=== PATIENT | female | born 1980 | race Caucasian/White ===

== ENCOUNTER 2018-01-18 20:22 | Emergency (ER) | payer OTHER ==
[2018-01-18] MEDS ORDERED: NEOMYCIN/BACITRACIN/POLYMYXINB 1 EACH OINT.PACK TP ONE (21:05)
[2018-01-18] MEDS ORDERED: Lidocaine 2% 20ml Vial IP ONE (21:05)
--- NOTE | 2018-01-18 21:08 | ED Physician Documentation ---
General Adult - HISTORIAN Historian: patient - HPI Stated Complaint: left arm laceration Chief Complaint: Laceration/Recheck/Suture Onset: hours (2) Timing: still present Severity: mild Further Comments: yes (she is a cutter for personal reasons. She is at [facility] for alcoholism and she is doing well) Last known Well Code/Unknown Code: Unknown - ROS CONST: no problems MS/SKIN/LYMPH: none - PAST HX Past History: other (alcoholism ) Allergies/Adverse Reactions: Allergies Allergy/AdvReac Type Severity Reaction Status Date / Time No Known Allergies Allergy Verified 01/18/18 21:35 Home Medications: Ambulatory Orders Medication Instructions Recorded NK [NK] 01/18/18 - SOCIAL HX Smoking History: cigarettes Alcohol Use: heavy Drug Use: none - FAMILY HX Family History: No - VITAL SIGNS Vital Signs: Vital Signs Temp Pulse Resp BP Pulse Ox 98.3 F 87 18 119/62 99 01/18/18 20:22 01/18/18 21:28 01/18/18 21:28 01/18/18 21:28 01/18/18 21:28 - REVIEWED ASSESSMENTS Nursing Assessment Reviewed: Yes Vitals Reviewed: Yes Procedures Wound Location: upper extremity (left forearm ) Wound's Depth, Shape: superficial Wound Explored: clean Anesthesia: 2% Lidocaine Suture Size/Type: 4:0 Number of Sutures: 9 ED Results Lab/Radiology - Orders Orders: ED Orders Category Date Time Status Apply occlusive dressing D Care 01/18/18 21:04 Active Lidocaine 2% 20ml Vial [Xylocaine] Med 01/18/18 21:05 Discontinued 20 mg IP NOW ONE Neomycin/Bacitracin/Polymyxinb [Triple Antibiotic Med 01/18/18 21:05 Discontinued Ointment] 1 each TP NOW ONE General Adult Physical Exam - PHYSICAL EXAM GENERAL APPEARANCE: no distress EENT: eye inspection normal NECK: normal inspection RESPIRATORY: no resp distress, chest non-tender, breath sounds normal CVS: reg rate & rhythm, heart sounds normal, equal pulses, no murmur ABDOMEN: soft, normal bowel sounds SKIN: warm/dry, other (4 in laceration on left forearm ) NEURO: oriented X3, CN's nml as tested, motor nml, sensation nml Discharge Clincal Impression: Laceration Referrals: Primary Doctor,No [Primary Care Provider] - 2 Days Comments: 1. Keep area clean and dry 2. remove sutures in 7-10 days 3. Watch for symptoms of infection : redness, swelling, streaking, bleeding, drainage or other concerning symptoms 4. Return to ER for any concerns Condition: Stable Disposition: 01 HOME, SELF-CARE Decision to Admit: NO Date of Decison to Admit: 01/18/18 Decision Time: 21:08
[2018-01-18 21:26] VITALS: BP 119/62
== END 2018-01-18 21:10 | disposition home or self-care (01) ==
LOC: ED 20:22
DX: S51.812A Laceration without foreign body of left forearm, initial encounter (principal); X78.9XXA Intentional self-harm by unspecified sharp object, initial encounter; Y92.9 Unspecified place or not applicable; Y93.9 Activity, unspecified; Y99.9 Unspecified external cause status
CPT/HCPCS: 12002

== ENCOUNTER 2018-10-14 18:33 | Observation (INO) | payer OTHER ==
[2018-10-14] MEDS ORDERED: ONDANSETRON HCL/PF 4 MG/ 2ML VIAL IVP ONE (18:40)
[2018-10-14] MEDS ORDERED: THIAMINE HCL 100 MG, MULTIVIT INFUSN,ADULT 1,VIT K 10 ML, FOLIC ACID 5 MG in 0.9 % SODI... IV ONE (18:41)
[2018-10-14] MEDS ORDERED: THIAMINE HCL 200 MG/2 ML VIAL ONE ×2 (18:46→18:48)
[2018-10-14] MEDS ORDERED: 0.9 % SODIUM CHLORIDE 1,000 ML IV ONE (18:46)
--- NOTE | 2018-10-14 18:47 | ED Physician Documentation ---
Altered Mental Status - HISTORIAN Historian: patient, paramedics - HPI Stated Complaint: ETOH/FALL Chief Complaint: Altered Mental Status Additional Information: Patient is a 38-year-old female who presents to the ER via [facility] from the "[facility]" here in [place]. Report was; pt fell off the top bunk of bunk bed and hit the back of her head and had a positive LOC- however, when EMS arrived patient would open her eyes and respond to them. Upon arrival to ER patient is awake and alert- she is cooperative- she knows who she is and where she is. She states that she drinks a 1/2 pint of Vodka every day and has for many years. She has an abrasion to her chin from falling out of bunk bed a couple of nights ago. Medications indicate that patient may have a history of depression, bipolar, schizophrenia, or anxiety. Onset: hours (Just Prior to Arrival) Duration: sudden onset (after falling off bunk bed) Last known Well Date: 10/14/18 Last Known Well Time: 17:00 Last known Well Code/Unknown Code: Unknown Character of Altered Mental Status: trouble concentrating, other (but answering questions ) Context: recent alcohol intake, heavy alcohol intake, head injury, other (Resides at the "[facility]") Cognition is Usually: alert, disoriented (time) Gait is Usually: walks w/o assistance, other Associated Symptoms: other (pt fell off bunk bed- denies any pain or injury) - ROS EYES/ENT: none CVS/RESP: none GI/: problems urinating (incontinent of urine) MS/SKIN/LYMPH: none NEURO/PSYCH: none - PAST HX Past History: psychiatric disorder, schizophrenia Immunizations: UTD Allergies/Adverse Reactions: Allergies Allergy/AdvReac Type Severity Reaction Status Date / Time No Known Allergies Allergy Verified 10/14/18 18:42 Home Medications: Ambulatory Orders Medication Instructions Recorded Buspirone HCl [Buspar] 15 mg DAILY 10/14/18 Escitalopram Oxalate [Lexapro] 20 mg HS 10/14/18 OLANZapine [Zyprexa] 5 mg DAILY 10/14/18 traZODone HCL [Desyrel] 100 mg HS 10/14/18 - SOCIAL HX Smoking History: greater than 1 pack/day Alcohol Use: heavy Drug Use: none - FAMILY HX Family History: none - VITAL SIGNS Vital Signs: Vital Signs Temp Pulse Resp BP Pulse Ox 98.6 F 85 20 137/84 93 10/14/18 18:38 10/14/18 18:38 10/14/18 18:38 10/14/18 18:38 10/14/18 18:38 - REVIEWED ASSESSMENTS Nursing Assessment Reviewed: Yes Vitals Reviewed: Yes ED Results Lab/Radiology - Lab Results Lab Results: Lab Results 10/14/18 10/14/18 18:40 18:40 WBC 7.40 K/ul K/ul (4.00-12.00) RBC 4.35 M/ul M/ul (3.90-5.20) Hgb 13.4 g/dL g/dL (11.5-16.0) Hct 39.4 % % (34.5-46.5) MCV 91.0 fl fl (80.0-100.0) MCH 30.8 pg pg (28.0-34.0) MCHC 34.0 g/dL g/dL (30.0-36.0) RDW 13.7 % % (11.3-14.3) Plt Count 263 K/mm3 K/mm3 (130-400) Neut % (Auto) 60.5 % % (39.0-79.0) Lymph % (Auto) 29.9 % % (16.0-50.0) [place] % (Auto) 6.6 % % (0.0-11.0) Eos % (Auto) 2.6 % % (0.0-6.8) Baso % (Auto) 0.4 % % (0.0-1.5) Neut # (Auto) 4.5 # k/uL # k/uL (1.4-7.7) Lymph # (Auto) 2.2 # k/uL # k/uL (0.6-4.0) [place] # (Auto) 0.5 # k/uL # k/uL (0.0-0.9) Eos # (Auto) 0.2 # k/uL # k/uL (0.0-0.6) Baso # (Auto) 0.0 # k/uL # k/uL (0.0-0.5) Sodium 144 mmol/L mmol/L (137-145) Potassium 3.6 mmol/L mmol/L (3.5-5.1) Chloride 108 mmol/L H mmol/L (98-107) Carbon Dioxide 24 mmol/L mmol/L (22-30) BUN 10 mg/dL mg/dL (7-17) Creatinine 0.70 mg/dL mg/dL (0.52-1.04) Estimated Creat Clear 165 Est GFR ( Amer) > 60 (60 - ) Est GFR (Non-Af Amer) > 60 (60 - ) Glucose 105 mg/dL mg/dL (74-106) Calcium 8.8 mg/dL mg/dL (8.4-10.2) Total Bilirubin 0.2 mg/dL mg/dL (0.2-1.3) AST 43 U/L U/L (15-46) ALT 18 U/L U/L (0-35) Alkaline Phosphatase 94 U/L U/L (38-126) Total Protein 7.7 g/dL g/dL (6.3-8.2) Albumin 4.4 g/dL g/dL (3.5-5.0) Ethyl Alcohol 415.0 mg/dL H mg/dL (0.0-10.0) - Radiology Radiology Impressions: Examination: CT head without contrast History: FALL WITH LOC Comparison exam: None available Technique: Noncontrast head CT protocol. Findings: Ventricles and sulci are appropriate for patient age. Cerebrocerebellar parenchyma demonstrates normal attenuation. No evidence for parenchymal hemorrhage. No evidence for mass or mass effect. No midline shift. No extra axial fluid collections. Partial visualization of the paranasal sinuses, mastoid air cells, orbits, skull and scalp without gross irregularity. Impression: No acute parenchymal process. No hemorrhage. Electronically signed on Oct 14, 2018 7:19:59 PM CDT by: Serafin Reardon Examination: CT cervical spine History: FALL WITH LOC Comparison exams: None provided Technique: CT cervical spine axial imaging with sagittal and coronal reconstruction Findings: Sagittal reconstruction demonstrates normal height and alignment the cervical vertebral bodies. No anterior compression deformity. Coronal reconstruction does not demonstrate locked or perched facets. No atlantoaxial abnormality. Mild sinus mucus thickening. Streak artifact from dental hardware. Apical lung scaring Axial imaging obtained from the skull base through T1 Lamina and pedicles are intact. No ossific density within the central canal. No prevertebral soft tissue abnormality. Impression: No evidence for vertebral body compression fracture Electronically signed on Oct 14, 2018 7:28:46 PM CDT by: Serafin Reardon - Orders Orders: ED Orders Category Date Time Status Place IV Lock 1T Care 10/14/18 18:[address] BRAIN W/O CONTRAST Stat Exams 10/14/[address] C-SPINE W/O CONTRAST Stat Exams 10/14/18 Taken ALCOHOL MEDICAL USE ONLY Stat Lab 10/14/18 18:40 Completed CBC/PLATELET/DIFF Stat Lab 10/14/18 18:40 Completed CMP Stat Lab 10/14/18 18:40 Completed 0.9 % Sodium Chloride [Normal Saline] 1,000 ml Med 10/14/18 18:46 Discontinued IV .STK-MED Folic Acid [Folvite] Med 10/14/18 18:48 Discontinued 5 mg .ROUTE .STK-MED ONE Multivit Infusn,Adult 1,Vit K [M.v.i. Adult] Med 10/14/18 18:49 Discontinued 10 ml IV .STK-MED ONE Ondansetron HCl/Pf [Zofran] Med 10/14/18 18:40 Discontinued 4 mg IVP NOW ONE Thiamine HCl [Vitamin B-1] Med 10/14/18 18:46 Discontinued 200 mg .ROUTE .STK-MED ONE Thiamine HCl [Vitamin B-1] Med 10/14/18 18:48 Discontinued 200 mg .ROUTE .STK-MED ONE Thiamine HCl [Vitamin B-1] 100 mg Med 10/14/18 18:41 Discontinued Multivit Infusn,Adult 1,Vit K [M.v.i. Adult] 10 ml Folic Acid [Folvite] 5 mg 0.9 % Sodium Chloride [Normal Saline] 1,000 ml IV NOW Altered Mental Status Physical - Physical Exam General Appearance: mild distress Neuro/Psych: none alert, eyes open nml as tested Peripheral Exam: motor nml, sensation nml HEENT: LIZZ, ENT inspection nml, oropharynx nml Neck: normal inspection, supple Respiratory: breath sounds normal CVS: heart sounds normal, equal pulses Abdomen: non-tender, nml bowel sounds Skin: warm/dry, pallor Extremities: non-tender, no evidence of injury Discharge Clincal Impression: Alcohol intoxication, Fall Referrals: Primary Doctor,No [Primary Care Provider] - 2 Days Comments: Patient alcohol > 400- she is calm and cooperative- we will admit patient observation; hydrate and monitor; will recheck labs in the morning. Condition: Fair Decision to Admit: [id number] Decision Time: 19:50
[2018-10-14] MEDS ORDERED: FOLIC ACID 5 MG/1 ML ONE (18:48)
[2018-10-14] MEDS ORDERED: MULTIVIT INFUSN,ADULT 1,VIT K 10 ML VIAL IV ONE (18:49)
[2018-10-14 19:12] LABS: MEAN CORPUSCULAR HEMOGLOBIN 30.8 pg (28.0-34.0)
[2018-10-14 19:13] LABS: BASOPHILS % 0.4 % (0.0-1.5); EOSINOPHILS % 2.6 % (0.0-6.8); MONOCYTES % 6.6 % (0.0-11.0); NEUTROPHILS # 4.5 # k/uL (1.4-7.7)
[2018-10-14 19:14] LABS: eGFR (Non-African) > 60
[2018-10-14 20:50] VITALS: BMI 26.1
[2018-10-14] MEDS: DEXTROSE 5 %-0.45 % SOD CHLORD 1,000 ML IV SCH (20:51)
[2018-10-15] MEDS ORDERED: ACETAMINOPHEN 325 MG TABLET PO PRN (01:44)
[2018-10-15] MEDS ORDERED: IBUPROFEN 400 MG TABLET PO PRN (01:44)
[2018-10-15] MEDS: DEXTROSE 5 %-0.45 % SOD CHLORD 1,000 ML IV SCH ×3 (05:58→06:14)
--- NOTE | 2018-10-15 06:02 | Diagnostic Imaging Report ---
MARY ALICE PRADO [facility] [address] [facility] [address] [place] [address]. [id number] Report Submission Date: Oct 14, 2018 7:19:59 PM CDT Patient Study Name: JOSE CID Date: Oct 14, 2018 7:02:41 PM CDT Modality Type: CT\SR Gender: F Description: CT BRAIN W/O CONTRAST : 80 Institution: [facility] Physician: MARY ALICE PRADO Examination: CT head without contrast History: FALL WITH LOC Comparison exam: None available Technique: Noncontrast head CT protocol. Findings: Ventricles and sulci are appropriate for patient age. Cerebrocerebellar parenchyma demonstrates normal attenuation. No evidence for parenchymal hemorrhage. No evidence for mass or mass effect. No midline shift. No extra axial fluid collections. Partial visualization of the paranasal sinuses, mastoid air cells, orbits, skull and scalp without gross irregularity. Impression: No acute parenchymal process. No hemorrhage. Electronically signed on Oct 14, 2018 7:19:59 PM CDT by: Serafin Reardon [facility] HOSPITALGonsalo
--- NOTE | 2018-10-15 06:02 | Diagnostic Imaging Report ---
MARY ALICE PRADO [facility] [address] [facility] [address] [place] [address]. [id number] Report Submission Date: Oct 14, 2018 7:28:46 PM CDT Patient Study Name: JOSE CID Date: Oct 14, 2018 7:05:05 PM CDT Modality Type: CT\SR Gender: F Description: CT C-SPINE W/O CONTRAS : 80 Institution: [facility] Physician: MARY ALICE PRADO Examination: CT cervical spine History: FALL WITH LOC Comparison exams: None provided Technique: CT cervical spine axial imaging with sagittal and coronal reconstruction Findings: Sagittal reconstruction demonstrates normal height and alignment the cervical vertebral bodies. No anterior compression deformity. Coronal reconstruction does not demonstrate locked or perched facets. No atlantoaxial abnormality. Mild sinus mucus thickening. Streak artifact from dental hardware. Apical lung scaring Axial imaging obtained from the skull base through T1 Lamina and pedicles are intact. No ossific density within the central canal. No prevertebral soft tissue abnormality. Impression: No evidence for vertebral body compression fracture Electronically signed on Oct 14, 2018 7:28:46 PM CDT by: Serafin ARZATE
[2018-10-15 06:48] LABS: MEAN CORPUSCULAR HEMOGLOBIN 30.3 pg (28.0-34.0); eGFR (Non-African) > 60
[2018-10-15 06:49] LABS: BASOPHILS % 0.4 % (0.0-1.5); EOSINOPHILS % 3.8 % (0.0-6.8); MONOCYTES % 8.3 % (0.0-11.0); NEUTROPHILS # 3.2 # k/uL (1.4-7.7)
--- NOTE | 2018-10-15 07:08 | Discharge Summary ---
Discharge Summary - Discharge [facility] Admission Date: 10/14/18 Discharge Date: 10/15/18 History of Present Illness: Patient is a 38-year-old female who presented to the ER via [facility] from the "[facility]" here in [place]. Report was; pt fell off the top bunk of bunk bed and hit the back of her head and had a positive LOC- however, when EMS arrived patient would open her eyes and respond to them. Upon arrival to ER patient is awake and alert- she is cooperative- she knows who she is and where she is. She states that she drinks a 1/2 pint of Vodka every day and has for many years. She has an abrasion to her chin from falling out of bunk bed a couple of nights ago. Medications indicate that patient may have a history of depression, bipolar, schizophrenia, or anxiety. Additional Instructions: Patient will be discharged back to the [facility] Condition at Discharge: Stable Home Medications: Ambulatory Orders Medication Instructions Recorded Buspirone HCl [Buspar] 15 mg DAILY 10/14/18 Escitalopram Oxalate [Lexapro] 20 mg HS 10/14/18 OLANZapine [Zyprexa] 5 mg DAILY 10/14/18 traZODone HCL [Desyrel] 100 mg HS 10/14/18 Consultations this Visit: None Procedures this Visit: None Allergies/Adverse Reactions: Allergies Allergy/AdvReac Type Severity Reaction Status Date / Time No Known Allergies Allergy Verified 10/14/18 18:42 Discharge Summary: Patient was admitted d/t alcohol >400 and fall from top bunk of bunk bed. Head CT and neck were negative. Patient was admitted observation for hydration and neuro checks. She did well through the night. Nursing state that patient has been very cooperative with treatment. She is alert and oriented this morning. We discussed rehab but she states that she is not ready to stop alcohol use. Voiced understanding. Hospital Course: IV hydration, neuro checks, telemetry - Final Diagnosis (1) Alcohol intoxication Problems: Alcohol level this morning negative- no evidence of head injury Right or Left: Right (2) Fall Problems: Neuro checks have been negative
[2018-10-15] MEDS ORDERED: OLANZapine 10 MG VIAL IM SCH (09:00)
[2018-10-15 09:16] VITALS: BP 137/81
== END 2018-10-15 09:21 | disposition home or self-care (01) ==
LOC: ED 18:33 → SOUTH 19:54
PROVIDERS: ADMIT Nurse Practitioner Family; ATTEND Nurse Practitioner Family
DX: R41.82 Altered mental status, unspecified (principal); F10.20 Alcohol dependence, uncomplicated; Y90.8 Blood alcohol level of 240 mg/100 ml or more; S00.81XA Abrasion of other part of head, initial encounter; F90.8 Attention-deficit hyperactivity disorder, other type; W06.XXXA Fall from bed, initial encounter; Y92.89 Other specified places as the place of occurrence of the external cause; Y93.9 Activity, unspecified
CPT/HCPCS: 70450; 72125; 80053; 80320; 85025; 96365; 96366; 96375; 99217; 99284; 99285; J2405; J3411; J3490; G0378; G0480; J7030; S5010

== ENCOUNTER 2019-01-09 17:21 | Observation (INO) | payer OTHER ==
--- NOTE | 2019-01-09 17:42 | ED Physician Documentation ---
General Adult - HISTORIAN Historian: patient - HPI Stated Complaint: ETOH intoxication Chief Complaint: General Adult Timing: still present Severity: mild Further Comments: yes (She states she is here to Detox - discussed with [facility] and they just need to make sure she is stable. She states she is currently intoxicated. She has had over a 5th of vodka and she states that this is her daily usual. She has poison belia currently she is going on one week. She did vomit . No other complaints . She does note previous detox she had seizure activity) - ROS CONST: no problems - PAST HX Past History: other (anxiety and alcohol abuse ) Immunizations: UTD Allergies/Adverse Reactions: Allergies Allergy/AdvReac Type Severity Reaction Status Date / Time No Known Allergies Allergy Verified 10/14/18 18:42 Home Medications: Ambulatory Orders Medication Instructions Recorded Buspirone HCl [Buspar] 15 mg DAILY 10/14/18 Escitalopram Oxalate [Lexapro] 20 mg HS 10/14/18 OLANZapine [Zyprexa] 5 mg DAILY 10/14/18 traZODone HCL [Desyrel] 100 mg HS 10/14/18 - SOCIAL HX Smoking History: cigarettes Alcohol Use: heavy Drug Use: none - FAMILY HX Family History: No - VITAL SIGNS Vital Signs: Vital Signs Temp Pulse Resp BP Pulse Ox 137/81 10/15/18 07:07 - REVIEWED ASSESSMENTS Nursing Assessment Reviewed: Yes Vitals Reviewed: Yes Progress - Progress Progress: 1910: discussed labs with Katelyn - nurse at [facility] - will want ETOH under 200 - she will stay observation they suggest starting on Tegretol due to seizure activity with detox DG General Adult Physical Exam - PHYSICAL EXAM GENERAL APPEARANCE: no distress EENT: eye inspection normal, pharynx normal, no signs of dehydration NECK: normal inspection RESPIRATORY: no resp distress, chest non-tender, breath sounds normal CVS: reg rate & rhythm, heart sounds normal, equal pulses ABDOMEN: soft, normal bowel sounds, no distension BACK: normal inspection SKIN: other (rash on neck right arm and abd dry and crusting linear rash ) EXTREMITIES: non-tender, normal range of motion, no evidence of injury NEURO: oriented X3, speech/cognition abnml Discharge Clincal Impression: Alcohol intoxication Qualifiers: Complication of substance-induced condition: uncomplicated Qualified Code(s): F10.920 - Alcohol use, unspecified with intoxication, uncomplicated Referrals: Primary Doctor,No [Primary Care Provider] - 2 Days Condition: Fair Decision to Admit: [id number] Date of Decison to Admit: 01/09/19 Decision Time: 19:13
[2019-01-09] MEDS ORDERED: THIAMINE HCL 100 MG, MULTIVIT INFUSN,ADULT 1,VIT K 10 ML, FOLIC ACID 5 MG in 0.9 % SODI... IV ONE (17:44)
[2019-01-09 17:52] LABS: BASOPHILS % 0.4 % (0.0-1.5); NEUTROPHILS # 2.3 # k/uL (1.4-7.7)
[2019-01-09] MEDS ORDERED: FOLIC ACID 5 MG/1 ML ONE (17:52)
[2019-01-09] MEDS ORDERED: 0.9 % SODIUM CHLORIDE 1,000 ML IV ONE ×3 (17:52→19:12)
[2019-01-09] MEDS ORDERED: THIAMINE HCL 200 MG/2 ML VIAL ONE ×2 (17:53→19:12)
[2019-01-09] MEDS ORDERED: MAGNESIUM SULFATE 1 GM/2ML VIAL ONE (17:53)
[2019-01-09] MEDS ORDERED: MULTIVIT INFUSN,ADULT 1,VIT K 10 ML VIAL IV ONE (17:53)
[2019-01-09 18:05] LABS: eGFR (Non-African) > 60
[2019-01-09] MEDS: carBAMazepine 200 MG TABLET PO SCH (19:22)
[2019-01-09] MEDS ORDERED: LORazepam 2 MG/ML VIAL IVP PRN (19:39)
[2019-01-09] MEDS ORDERED: 0.9 % SODIUM CHLORIDE 1,000 ML IV SCH (19:45)
[2019-01-09] MEDS ORDERED: traZODone HCL 50 MG TABLET PO SCH (21:00)
[2019-01-09] MEDS ORDERED: carBAMazepine 200 MG TABLET PO SCH (21:00)
[2019-01-09] MEDS: PROPRANOLOL HCL 20 MG TABLET PO SCH (21:08)
[2019-01-09] MEDS: ESCITALOPRAM OXALATE 10 MG TABLET PO SCH (21:09)
[2019-01-09 21:42] VITALS: BMI 25.8
[2019-01-10 07:20] LABS: APPEARANCE,URINE CLEAR (CLEAR); COLOR,URINE YELLOW (YELLOW); OCCULT BLOOD,URINE NEGATIVE (NEGATIVE); PH URINE 5.5 (5.0 - 8.0); UROBILINOGEN URINE 0.2 Eu (0.2-1.0)
[2019-01-10 07:23] LABS: CANNABINOIDS NEGATIVE ng/mL (< 50); METHYLENEDIOXYMETHAMPHETAMINE NEGATIVE ng/mL (<500)
[2019-01-10 08:25] VITALS: BP 127/97
[2019-01-10] MEDS: ESCITALOPRAM OXALATE 10 MG TABLET PO SCH (08:31)
[2019-01-10] MEDS: carBAMazepine 200 MG TABLET PO SCH (08:33)
[2019-01-10] MEDS: PROPRANOLOL HCL 20 MG TABLET PO SCH (08:33)
[2019-01-10] MEDS ORDERED: busPIRone HCL 5 MG TABLET PO SCH (09:00)
== END 2019-01-10 08:45 | disposition home or self-care (01) ==
LOC: ED 17:21 → SOUTH 19:27
PROVIDERS: ADMIT Nurse Practitioner Family; ATTEND Nurse Practitioner Family
DX: F10.920 Alcohol use, unspecified with intoxication, uncomplicated (principal)
CPT/HCPCS: 80053; 80320; 80377; 81002; 84132; 85025; 99234; J3411; J3490; G0378; G0480; G0481; J7030; S1016

== ENCOUNTER 2019-03-05 17:11 | Emergency (ER) | payer OTHER ==
[2019-03-05 17:29] LABS: BASOPHILS % 0.6 % (0.0-1.5); NEUTROPHILS # 5.9 # k/uL (1.4-7.7)
[2019-03-05 17:38] LABS: eGFR (Non-African) > 60
[2019-03-05] MEDS: 0.9 % SODIUM CHLORIDE 1,000 ML IV ONE ×4 (17:44→19:07)
[2019-03-05] MEDS: THIAMINE HCL 200 MG/2 ML VIAL ONE (18:31)
[2019-03-05] MEDS: THIAMINE HCL 100 MG, MULTIVIT INFUSN,ADULT 1,VIT K 10 ML, FOLIC ACID 5 MG in 0.9 % SODI... IV SCH (18:31)
[2019-03-05] MEDS: FOLIC ACID 5 MG/1 ML ONE (18:32)
[2019-03-05] MEDS: MULTIVIT INFUSN,ADULT 1,VIT K 10 ML VIAL IV ONE (18:32)
--- NOTE | 2019-03-05 22:11 | ED Physician Documentation ---
Altered Mental Status <Marilyn Avila - Last Filed: 03/06/19 08:32> - HISTORIAN Historian: patient, paramedics - HPI Stated Complaint: intoxication Chief Complaint: Altered Mental Status Onset: cannot confirm onset Last known Well Date: 03/05/19 Last Known Well Time: 17:00 Last known Well Code/Unknown Code: Unknown Character of Altered Mental Status: decreased responsiveness Context: other (intoxication) Cognition is Usually: alert, oriented x3 Gait is Usually: walks w/o assistance Associated Symptoms: none Further Comments: yes (38 year old female patient brought to [facility] with s evere intoxication. EMS called to transport patient to ER. On arrival patient opens eye to verbal commands, strong odor of ETOH, is protecting her own airway. RA Sat 88% - place on 2L NC. Nursing at bedside; will progress with intubation if patient unable to maintain airway.) - ROS EYES/ENT: denies: none CVS/RESP: none GI/: none MS/SKIN/LYMPH: none NEURO/PSYCH: none Comment: ROS completed after patient was more awaken - PAST HX Past History: other (depression, severe ETOH abuse) - SOCIAL HX Smoking History: cigarettes Alcohol Use: heavy (more than fifth per day) - FAMILY HX Family History: denies: none - REVIEWED ASSESSMENTS Nursing Assessment Reviewed: Yes Vitals Reviewed: Yes <DAFNE GALAVIZ - Last Filed: 03/12/19 21:02> - PAST HX Allergies/Adverse Reactions: Allergies Allergy/AdvReac Type Severity Reaction Status Date / Time Penicillins Allergy Verified 03/05/19 18:56 Sulfa (Sulfonamide Allergy Verified 03/05/19 18:56 Antibiotics) Home Medications: Ambulatory Orders Medication Instructions Recorded Buspirone HCl [Buspar] 15 mg DAILY 10/14/18 Escitalopram Oxalate [Lexapro] 20 mg HS 10/14/18 OLANZapine [Zyprexa] 5 mg DAILY 10/14/18 traZODone HCL [Desyrel] 100 mg HS 10/14/18 - VITAL SIGNS Vital Signs: Vital Signs Temp Pulse Resp BP Pulse Ox 99.0 F 116 H 14 118/87 97 03/06/19 08:41 03/06/19 08:41 03/06/19 08:41 03/06/19 08:41 03/06/19 08:41 Progress <Marilyn Avila - Last Filed: 03/06/19 08:32> <DAFNE GALAVIZ - Last Filed: 03/12/19 21:02> - Progress Progress: 719: lab returned ETOH value has decreased. [facility] aware and will accept transport at 0800. She is awake and alert. She is agreeable for going to [facility] DG (Marilyn Avila) 2130 Patient awake; alert able to answer questions and reposition self. Wishes to be admitted to [facility]. Call to - will accept patient tonight if she is able to care for herself. Discussed ETOH level. 2199 Call from [facility] refused patient admission tonight with ETOH level >300 Will keep patient in ER overnight, recheck lab in AM with planned discharge to [facility] 0200 Patient remains stable; sleeping in ER. 0700 Repeat ETOH drawn. Vitals remain stable. (DAFNE GALAVIZ) - Lab Results Lab Results: Lab Results 03/06/19 03/05/19 03/05/19 07:00 20:30 17:21 WBC RBC Hgb Hct MCV MCH MCHC RDW Plt Count Neut % (Auto) Lymph % (Auto) [place] % (Auto) Eos % (Auto) Baso % (Auto) Neut # (Auto) Lymph # (Auto) [place] # (Auto) Eos # (Auto) Baso # (Auto) Sodium 146 mmol/L H mmol/L (137-145) Potassium 3.6 mmol/L mmol/L (3.5-5.1) Chloride 98 mmol/L mmol/L (98-107) Carbon Dioxide 18 mmol/L L mmol/L (22-30) Anion Gap 33.6 BUN 8 mg/dL mg/dL (7-17) Creatinine 1.08 mg/dL H mg/dL (0.52-1.04) Est GFR ( Amer) > 60 (60 - ) Est GFR (Non-Af Amer) > 60 (60 - ) Glucose 160 mg/dL H mg/dL (74-106) Calcium 9.4 mg/dL mg/dL (8.4-10.2) Total Bilirubin 0.9 mg/dL mg/dL (0.2-1.3) AST 62 U/L H U/L (15-46) ALT 18 U/L U/L (13-69) Alkaline Phosphatase 126 U/L U/L (38-126) Total Protein 10.1 g/dL H g/dL (6.3-8.2) Albumin 5.4 g/dL H g/dL (3.5-5.0) Ethyl Alcohol 140.7 mg/dL H mg/dL 527.8 mg/dL H mg/dL > 300.0 mg/dL H mg/dL (0.0-10.0) (0.0-10.0) (0.0-10.0) 03/05/19 17:21 WBC 9.70 K/ul K/ul (4.00-12.00) RBC 5.39 M/ul H M/ul (3.90-5.20) Hgb 16.7 g/dL H g/dL (11.5-16.0) Hct 48.9 % H % (34.5-46.5) MCV 91.0 fl fl (80.0-100.0) MCH 31.0 pg pg (28.0-34.0) MCHC 34.2 g/dL g/dL (30.0-36.0) RDW 13.9 % % (11.3-14.3) Plt Count 231 K/mm3 K/mm3 (130-400) Neut % (Auto) 61.5 % % (39.0-79.0) Lymph % (Auto) 28.6 % % (16.0-50.0) [place] % (Auto) 7.9 % % (0.0-11.0) Eos % (Auto) 1.4 % % (0.0-6.8) Baso % (Auto) 0.6 % % (0.0-1.5) Neut # (Auto) 5.9 # k/uL # k/uL (1.4-7.7) Lymph # (Auto) 2.8 # k/uL # k/uL (0.6-4.0) [place] # (Auto) 0.8 # k/uL # k/uL (0.0-0.9) Eos # (Auto) 0.1 # k/uL # k/uL (0.0-0.6) Baso # (Auto) 0.1 # k/uL # k/uL (0.0-0.5) Sodium Potassium Chloride Carbon Dioxide Anion Gap BUN Creatinine Est GFR ( Amer) Est GFR (Non-Af Amer) Glucose Calcium Total Bilirubin AST ALT Alkaline Phosphatase Total Protein Albumin Ethyl Alcohol - Orders Orders: ED Orders Category Date Time Status Place IV Lock 1T Care 03/05/19 17:21 Active ALCOHOL MEDICAL USE ONLY Stat Lab 03/05/19 17:21 Completed ALCOHOL MEDICAL USE ONLY Stat Lab 03/06/19 07:00 Completed ALCOHOL MEDICAL USE ONLY Urgent Lab 03/05/19 20:30 Completed CBC/PLATELET/DIFF Stat Lab 03/05/19 17:21 Completed CMP Stat Lab 03/05/19 17:21 Completed 0.9 % Sodium Chloride [Normal Saline] 1,000 ml Med 03/05/19 18:20 Discontinued IV .STK-MED 0.9 % Sodium Chloride [Normal Saline] 1,000 ml Med 03/05/19 17:21 Discontinued IV NOW 0.9 % Sodium Chloride [Normal Saline] 1,000 ml Med 03/05/19 17:34 Discontinued IV NOW 0.9 % Sodium Chloride [Normal Saline] 1,000 ml Med 03/06/19 00:38 Discontinued IV NOW 0.9 % Sodium Chloride [Normal Saline] 1,000 ml Med 03/05/19 17:21 Discontinued IV Q1H Folic Acid [Folvite] Med 03/05/19 18:20 Discontinued 5 mg .ROUTE .STK-MED ONE Multivit Infusn,Adult 1,Vit K [M.v.i. Adult] Med 03/05/19 18:20 Discontinued 10 ml IV .STK-MED ONE Ondansetron HCl Rapdis [Zofran Odt] Med 03/06/19 07:53 Discontinued 4 mg PO NOW ONE Thiamine HCl [Vitamin B-1] Med 03/05/19 18:20 Discontinued 200 mg .ROUTE .STK-MED ONE Thiamine HCl [Vitamin B-1] 100 mg Med 03/05/19 21:00 Discontinued Multivit Infusn,Adult 1,Vit K [M.v.i. Adult] 10 ml Folic Acid [Folvite] 5 mg 0.9 % Sodium Chloride [Normal Saline] 1,000 ml IV Q8 Altered Mental Status Physical - Physical Exam General Appearance: lethargic Neuro/Psych: depression eyes open, slow to respond, withdraws HEENT: LIZZ (5 mm sluggish response) Respiratory: no resp distress, chest non-tender, breath sounds normal CVS: reg rate & rhythm, heart sounds normal, equal pulses, no murmur, no gallop, PMI nml, no JVD, no friction rub, 24 Abdomen: non-tender, no organomegaly, nml bowel sounds, no distention Skin: warm/dry, normal color Extremities: non-tender, normal range of motion, no evidence of injury, no edema, J, [employer] <DAFNE GALAVIZ - Last Filed: 03/12/19 21:02> Discharge Decision to Admit: NO Date of Decison to Admit: 03/06/19 Decision Time: 08:15 <Marilyn Avila - Last Filed: 03/06/19 08:32> Decision to Admit: NO <DAFNE GALAVIZ - Last Filed: 03/12/19 21:02> Clincal Impression: Alcohol abuse Alcohol intoxication Qualifiers: Complication of substance-induced condition: uncomplicated Qualified Code(s): F10.920 - Alcohol use, unspecified with intoxication, uncomplicated Referrals: Primary Doctor,No [Primary Care Provider] - 2 Days Comments: Discharge to [facility] (Marilyn Avila) Condition: Stable Disposition: 01 HOME, SELF-CARE
[2019-03-06] MEDS: 0.9 % SODIUM CHLORIDE 1,000 ML IV ONE (00:44)
[2019-03-06] MEDS: ONDANSETRON HCL 4 MG TAB.RAPDIS PO ONE (07:55)
[2019-03-06 08:43] VITALS: BP 118/87
== END 2019-03-06 08:38 | disposition home or self-care (01) ==
LOC: ED 17:11
DX: F10.129 Alcohol abuse with intoxication, unspecified (principal); Y90.8 Blood alcohol level of 240 mg/100 ml or more
CPT/HCPCS: 51702; 80053; 80320; 85025; 96361; 96374; 99284; J3411; J3490; A9270; G0480; J7030; S1016

== ENCOUNTER 2019-03-17 21:18 | Emergency (ER) | payer OTHER ==
--- NOTE | 2019-03-17 21:21 | ED Physician Documentation ---
General Adult - HISTORIAN Historian: patient - HPI Stated Complaint: alcohol intoxication Chief Complaint: Overdose Onset: days ago (1) Timing: better Severity: moderate Further Comments: yes (per [facility] she had 5th of vodka and then presented to [facility] intoxicated and wanted to be admitted) - ROS CONST: no problems - PAST HX Past History: other (ETOH ) - SOCIAL HX Smoking History: cigarettes Alcohol Use: heavy Drug Use: none - FAMILY HX Family History: No - VITAL SIGNS Vital Signs: Vital Signs Temp Pulse Resp BP Pulse Ox 118/87 03/06/19 08:41 - REVIEWED ASSESSMENTS Nursing Assessment Reviewed: Yes Vitals Reviewed: Yes <Marilyn Avila - Last Filed: 03/18/19 06:29> - VITAL SIGNS Vital Signs: Vital Signs Temp Pulse Resp BP Pulse Ox 97.7 F 69 16 106/63 96 03/18/19 04:00 03/18/19 04:00 03/18/19 04:00 03/18/19 04:00 03/18/19 04:00 <Asha Le - Last Filed: 03/18/19 09:30> - PAST HX Allergies/Adverse Reactions: Allergies Allergy/AdvReac Type Severity Reaction Status Date / Time Penicillins Allergy Verified 03/05/19 18:56 Sulfa (Sulfonamide Allergy Verified 03/05/19 18:56 Antibiotics) Home Medications: Ambulatory Orders Medication Instructions Recorded Escitalopram Oxalate [Lexapro] 20 mg HS 10/14/18 OLANZapine [Zyprexa] 5 mg DAILY 10/14/18 traZODone HCL [Desyrel] 100 mg HS 10/14/18 Progress - Progress Progress: 2334: she is awake and aware of her name and birthdate and age. She is not sure where she is and she is not sure of the exact date DG 0115: resting quietly DG 0300: resting quietly will arouse to name DG 0630: labs are improving will call [facility] about discharge DG <Marilyn Avila - Last Filed: 03/18/19 06:29> - Progress Progress: 0800 Patient doing better. [facility]ien will be coming to pick patient up at 0830. Will discharge at that time. <Asha Le - Last Filed: 03/18/19 09:30> ED Results Lab/Radiology - Lab Results Lab Results: Lab Results 03/18/19 03/17/19 03/17/19 05:18 23:21 22:25 WBC RBC Hgb Hct MCV MCH MCHC RDW Plt Count Neut % (Auto) Lymph % (Auto) [place] % (Auto) Eos % (Auto) Baso % (Auto) Neut # (Auto) Lymph # (Auto) [place] # (Auto) Eos # (Auto) Baso # (Auto) Sodium 149 mmol/L H mmol/L 151 mmol/L H mmol/L (137-145) (137-145) Potassium Chloride Carbon Dioxide Anion Gap BUN Creatinine Estimated Creat Clear Est GFR ( Amer) Est GFR (Non-Af Amer) Glucose Calcium Total Bilirubin AST ALT Alkaline Phosphatase Total Protein Albumin Urine Color Yellow (YELLOW) Urine Appearance Clear (CLEAR) Urine pH 5.5 (5.0 - 8.0) Ur Specific Leon <=1.005 L (1.010-1.030) Urine Protein Negative mg/dL mg/dL (NEGATIVE) Urine Ketones Negative mg/dL mg/dL (NEGATIVE) Urine Occult Blood Negative (NEGATIVE) Urine Nitrite Negative (NEGATIVE) Urine Bilirubin Negative (NEGATIVE) Urine Urobilinogen 0.2 Eu Eu (0.2-1.0) Ur Leukocyte Esterase Trace H (NEGATIVE) Urine Glucose Negative mg/dL mg/dL (NEGATIVE) Opiates Screen Oxycodone Screen Methadone Screen Ur Barbiturates Screen Tricyclic Antidepress Phencyclidine Screen Amphetamines Screen U Methamphetamines Scrn MDMA Benzodiazepines Screen Urine Cocaine Screen U Cannabinoids Screen Ethyl Alcohol 255.6 mg/dL H mg/dL (0.0-10.0) 03/17/19 03/17/19 03/17/19 22:25 21:43 21:43 WBC 5.20 K/ul K/ul (4.00-12.00) RBC 4.43 M/ul M/ul (3.90-5.20) Hgb 13.6 g/dL g/dL (11.5-16.0) Hct 40.5 % % (34.5-46.5) MCV 91.0 fl fl (80.0-100.0) MCH 30.6 pg pg (28.0-34.0) MCHC 33.5 g/dL g/dL (30.0-36.0) RDW 14.1 % % (11.3-14.3) Plt Count 301 K/mm3 K/mm3 (130-400) Neut % (Auto) 45.1 % % (39.0-79.0) Lymph % (Auto) 41.4 % % (16.0-50.0) [place] % (Auto) 11.4 % H % (0.0-11.0) Eos % (Auto) 1.6 % % (0.0-6.8) Baso % (Auto) 0.5 % % (0.0-1.5) Neut # (Auto) 2.4 # k/uL # k/uL (1.4-7.7) Lymph # (Auto) 2.2 # k/uL # k/uL (0.6-4.0) [place] # (Auto) 0.6 # k/uL # k/uL (0.0-0.9) Eos # (Auto) 0.1 # k/uL # k/uL (0.0-0.6) Baso # (Auto) 0.0 # k/uL # k/uL (0.0-0.5) Sodium 152 mmol/L H mmol/L (137-145) Potassium 3.5 mmol/L mmol/L (3.5-5.1) Chloride 111 mmol/L H mmol/L (98-107) Carbon Dioxide 24 mmol/L mmol/L (22-30) Anion Gap 20.5 BUN 9 mg/dL mg/dL (7-17) Creatinine 0.50 mg/dL L mg/dL (0.52-1.04) Estimated Creat Clear 192 Est GFR ( Amer) > 60 (60 - ) Est GFR (Non-Af Amer) > 60 (60 - ) Glucose 117 mg/dL H mg/dL (74-106) Calcium 8.9 mg/dL mg/dL (8.4-10.2) Total Bilirubin 0.3 mg/dL mg/dL (0.2-1.3) AST 39 U/L U/L (15-46) ALT 37 U/L U/L (13-69) Alkaline Phosphatase 77 U/L U/L (38-126) Total Protein 7.7 g/dL g/dL (6.3-8.2) Albumin 4.5 g/dL g/dL (3.5-5.0) Urine Color Urine Appearance Urine pH Ur Specific Leon Urine Protein Urine Ketones Urine Occult Blood Urine Nitrite Urine Bilirubin Urine Urobilinogen Ur Leukocyte Esterase Urine Glucose Opiates Screen Negative ng/mL ng/mL (<300) Oxycodone Screen Negative ng/mL ng/mL (<100) Methadone Screen Negative ng/mL ng/mL (<200) Ur Barbiturates Screen Negative ng.mL ng.mL (<200) Tricyclic Antidepress Negative ng/mL ng/mL (<300) Phencyclidine Screen Negative ng/mL ng/mL (< 25) Amphetamines Screen Negative ng/mL ng/mL (<500) U Methamphetamines Scrn Negative ng/mL ng/mL (<500) MDMA Negative ng/mL ng/mL (<500) Benzodiazepines Screen Non negative ng/mL H ng/mL (<150) Urine Cocaine Screen Negative ng/mL ng/mL (<150) U Cannabinoids Screen Negative ng/mL ng/mL (< 50) Ethyl Alcohol 439.8 mg/dL H mg/dL (0.0-10.0) - Orders Orders: ED Orders Category Date Time Status Continuous EKG monitoring Q1H Care 03/17/19 21:24 Active IV Started NOW Care 03/17/19 21:24 Active ALCOHOL MEDICAL USE ONLY Stat Lab 03/17/19 21:43 Completed ALCOHOL MEDICAL USE ONLY Stat Lab 03/18/19 05:18 Completed CBC/PLATELET/DIFF Stat Lab 03/17/19 21:43 Completed CMP Stat Lab 03/17/19 21:43 Completed SODIUM Stat Lab 03/17/19 23:21 Completed SODIUM Stat Lab 03/18/19 05:18 Completed UA MACRO DIP ONLY Routine Lab 03/17/19 22:25 Completed UDS [DRUG SCREEN URINE MEDICAL ONLY] Routine Lab 03/17/19 22:25 Completed 0.9 % Sodium Chloride [Normal Saline] 1,000 ml Med 03/17/19 21:57 Discontinued IV .STK-MED Folic Acid [Folvite] Med 03/17/19 21:56 Discontinued 5 mg .ROUTE .STK-MED ONE Multivit Infusn,Adult 1,Vit K [M.v.i. Adult] Med 03/17/19 21:57 Discontinued 10 ml IV .STK-MED ONE Thiamine HCl [Vitamin B-1] Med 03/17/19 21:57 Discontinued 200 mg .ROUTE .STK-MED ONE Thiamine HCl [Vitamin B-1] 100 mg Med 03/17/19 22:00 Ordered Multivit Infusn,Adult 1,Vit K [M.v.i. Adult] 10 ml Folic Acid [Folvite] 5 mg 0.9 % Sodium Chloride [Normal Saline] 1,000 ml IV Q8 <Asha Le - Last Filed: 03/18/19 09:30> General Adult Physical Exam - PHYSICAL EXAM GENERAL APPEARANCE: no distress EENT: no signs of dehydration, LIZZ NECK: normal inspection RESPIRATORY: no resp distress, chest non-tender, breath sounds normal CVS: reg rate & rhythm, heart sounds normal ABDOMEN: soft, normal bowel sounds, non-tender SKIN: warm/dry EXTREMITIES: non-tender, normal range of motion, no evidence of injury NEURO: speech/cognition abnml (alert to person ) <Marilyn Avila - Last Filed: 03/18/19 06:29> Discharge <Marilyn Avila - Last Filed: 03/18/19 06:29> Decision to Admit: NO Date of Decison to Admit: 03/18/19 Decision Time: 08:30 <Asha Le - Last Filed: 03/18/19 09:30> Clincal Impression: Alcohol intoxication Qualifiers: Complication of substance-induced condition: uncomplicated Qualified Code(s): F10.920 - Alcohol use, unspecified with intoxication, uncomplicated Referrals: Primary Doctor,No [Primary Care Provider] - 2 Days Additional Instructions: 1. Avoid alcohol 2. Follow up with PCP within 1 week 3. Return to ER for new or worsening symptoms Condition: Stable Disposition: 01 HOME, SELF-CARE
[2019-03-17] MEDS ORDERED: FOLIC ACID 5 MG/1 ML ONE (21:56)
[2019-03-17] MEDS ORDERED: THIAMINE HCL 200 MG/2 ML VIAL ONE (21:57)
[2019-03-17] MEDS ORDERED: 0.9 % SODIUM CHLORIDE 1,000 ML IV ONE (21:57)
[2019-03-17] MEDS ORDERED: MULTIVIT INFUSN,ADULT 1,VIT K 10 ML VIAL IV ONE (21:57)
[2019-03-17] MEDS: THIAMINE HCL 100 MG, MULTIVIT INFUSN,ADULT 1,VIT K 10 ML, FOLIC ACID 5 MG in 0.9 % SODI... IV SCH (22:05)
[2019-03-18 06:35] LABS: APPEARANCE,URINE CLEAR (CLEAR); COLOR,URINE YELLOW (YELLOW); OCCULT BLOOD,URINE NEGATIVE (NEGATIVE); PH URINE 5.5 (5.0 - 8.0); UROBILINOGEN URINE 0.2 Eu (0.2-1.0)
[2019-03-18 06:50] LABS: CANNABINOIDS NEGATIVE ng/mL (< 50); METHYLENEDIOXYMETHAMPHETAMINE NEGATIVE ng/mL (<500)
[2019-03-18 06:51] LABS: eGFR (Non-African) > 60
[2019-03-18 06:52] LABS: BASOPHILS % 0.5 % (0.0-1.5); NEUTROPHILS # 2.4 # k/uL (1.4-7.7)
[2019-03-18 09:39] VITALS: BP 122/75
== END 2019-03-18 09:38 | disposition home or self-care (01) ==
LOC: ED 21:18
DX: F10.920 Alcohol use, unspecified with intoxication, uncomplicated (principal); F17.210 Nicotine dependence, cigarettes, uncomplicated
CPT/HCPCS: 80053; 80320; 80377; 81002; 84295; 85025; 96374; 99283; J3411; J3490; G0480; G0481; J7030